=== PATIENT | female | born 1990 | race Caucasian/White ===

== ENCOUNTER 2022-05-29 18:23 | Emergency (ER) | payer BC, SELFPAY ==
[2022-05-29 18:24] VITALS: BP 143/95; PULSE 117; RESP 16; TEMP 36.8; O2SAT 98; BMI 36.8
--- NOTE | 2022-05-29 18:55 | EX.ED.VIS.UR ---
HPI HPI - URI History of Present Illness Chief Complaint: Ear Problem Detail of Chief Complaint: Left earache for 1 week. Informant: patient Onset/Context/Timing Onset: Days Context: Gradual Onset Timing: Continuous Current Severity: Moderate Maximum Severity: Moderate Narrative Narrative: 32-year-old female no seen past medical history. Prior adenoids removed years ago. States that she developed a gradual earache week ago. Saw an urgent care who put her on amoxicillin twice a day. She started that on Tuesday and states that is just getting worse with more pain. Prior similar symptoms: No Recent Illness/Hospitalization: No ROS ROS ED ROS Narrative Left earache. Review of Systems ROS Unobtainable: Denies due to encephalopathy Constitutional Constitutional ED: Denies chills or fever(s) Eyes Eyes: Denies blurry vision ENT ENT ED: Reports ear pain; Denies rhinorrhea or sore throat Cardiovascular Cardiovascular: Denies chest pain or palpitations Respiratory/Chest Respiratory/Chest: Denies cough Gastrointestinal Gastrointestinal: Denies abdominal pain Genitourinary Genitourinary ED: Denies dysuria Musculoskeletal Musculoskeletal: Denies arthralgias Integumentary Denies abscess Neurologic Neurologic: Denies headache(s) Psychiatric Psychiatric: Denies anxiety Endocrine Endocrinology: Denies cold intolerance Hematologic/Lymphatic Hematologic/Lymphatic: Denies easy bleeding Allergic/Immunologic Allergic/Immunologic ED: Denies mouth swelling PFSH PFSH Home Medications amoxicillin 500 mg capsule 1 cap PO BID 05/29/22 [History Last Taken Unknown] Allergy/AdvReac Type Severity Reaction Status Date / Time No Known Allergies Allergy Verified 05/29/22 18:24 Social History Smoking Status: Never smoker EXAM Physical Exam Narrative Exam Narrative: 32-year-old female no acute distress. Vital signs stable afebrile. H EENT exam posterior pharynx normal. Pupils round reactive light. Right ear canal and eardrum normal. Left ear the external canal is swollen and tender. I cannot see past it. I cannot get the otoscope into because the not a pain and swelling. Posterior pharynx normal. Neck tender left eustachian tube. Lungs are clear. Heart regular rhythm. Abdomen soft nontender. Otherwise exam unremarkable. Const Vital Signs: 05/29/22 18:24 05/29/22 18:24 Temperature 98.2 F 98.2 F Temperature Source Temporal Oral Pulse Rate 117 H 117 H Respiratory Rate 16 16 Blood Pressure 143/95 H 143/95 H Blood Pressure Mean 111 111 Pulse Ox 98 98 Oxygen Delivery Method Room Air Room Air Positive well nourished and well developed; Negative for obese, cachectic or contractures General Appearance ED: well developed; Negative for cachectic, contractures or pallor Nutritional Appearance: Negative for cachectic or obese HEENT Reports moist mucous membranes; Denies dry mucous membranes HEENT Narrative: Left otitis externa. Canal swollen unable to see the tympanic membrane. normocephalic and atraumatic; Negative for scalp tenderness Mouth ED: No dry mucous membranes Mouth: No dry mucous membranes Eyes PERRL and EOMs intact bilaterally Neck no lymphadenopathy, supple, no meningeal signs and no JVD Neck Narrative: Tender left eustachian tube. General: Negative for anterior neck swelling or lymphadenopathy Resp normal respiratory effort and clear to auscultation bilaterally Effort and Inspection: Negative for retractions Auscultation: Negative for rales, rhonchi or wheezes Cardio S1 normal heart sound, S2 normal heart sound and no murmurs Rate: tachycardic Rhythm: regular rhythm GI non-tender, non-distended and no masses Inspection: Negative for abdominal distention Auscultation: normoactive bowel sounds Palpation: soft; Negative for tender Back/Spine no CVA tenderness and normal ROM General Back: Negative for CVA tenderness Cervical Spine: Negative for cervical spine tenderness Thoracic Spine / Upper Back: Negative for thoracic spinal tenderness Extremity normal to inspection and full ROM General Extremety ED: Negative for cyanosis or tenderness General Extremity: Negative for cyanosis Neuro oriented x3 Sensorium / Orientation: alert, oriented to person, oriented to place and oriented to time Motor Exam: strength 5/5 throughout Psych Attitude: No agitated Mood & Affect: Negative for depressed or anxious Skin General Skin Exam: Negative for jaundice or pallor Lesions: no lesions Rashes: no rashes MDM MDM MDM Narrative Medical decision making narrative: 32-year-old female with left otitis externa. Ear wick will be placed. She will be placed on Corticosporin otic drops. She can continue the antibiotic that she was placed on by the urgent care. Follow-up with ENT if not improving. Motrin Tylenol for pain. Discharge Plan Triage Chief Complaint: Ear Problem ED Provider: Americo Max Dx/Rx/DC Orders Clinical Impression: Otitis externa Instructions: ED External Ear Infection (Adult) Prescriptions: No Action Vits 1 tab PO DAILY oxycodone-acetaminophen 1 TABLET tablet 1 - 2 tab PO Q4H PRN PRN (Reason: Abdominal Pain) Qty: 30 0RF Ibuprofen [Motrin] 800 MG tablet 800 mg PO TID PRN PRN (Reason: Abdominal Pain) Qty: 60 1RF Primary Care Provider: Care Physician,No Primary Referrals: Jesus Lima MD [Med Staff - Active Staff] - 3-5 Days if not improving Care Physician,No Primary [Primary Care Provider] - Activity Restrictions/Additional Instructions: This is an ear canal infection most likely not an eardrum infection. Continue your current antibiotic but the way to treat it is eardrops 2 drops 4 times a day to the left ear until gone.. Motrin and Tylenol for pain. This should progressively start improving. Follow-up with the ear nose and throat doctor if not improving. Disposition Disposition: Home, Self Care
== END 2022-05-29 20:06 | disposition home or self-care (01) ==
PROVIDERS: Emergency Provider Emergency Medicine; Visit Provider Emergency Medicine
DX: H60.92 Unspecified otitis externa, left ear (principal)
CPT/HCPCS: 99282